=== PATIENT | female | born 1980 | race Caucasian/White ===

== ENCOUNTER 2018-01-11 01:56 | Emergency (ER) | payer OTHER ==
[~2018-01-11] VITALS: Ht 162.6 cm; Wt 61.2 kg
[2018-01-11 02:14] LABS: URINE BILIRUBIN NEGATIVE (Negative); URINE BLOOD NEGATIVE (Negative); URINE CLARITY SL CLOUDY; URINE COLOR YELLOW; URINE GLUCOSE-RANDOM* NEGATIVE (Negative); URINE KETONES TRACE (Negative); URINE LEUKOCYTES-REFLEX NEGATIVE (Negative); URINE NITRITE-REFLEX POSITIVE (Negative); URINE PROTEIN (DIPSTICK) NEGATIVE (Negative); URINE UROBILINOGEN 0.2 E.U./dl (0.2-1.0)
[2018-01-11] MEDS ORDERED: ALEVE220 MG (02:16)
[2018-01-11 02:18] LABS: ABSOLUTE NEUTROPHILS 3.2 thou/uL (1.4-8.2); BASOPHILS 1.1 % (0.0-2.0); EOSINOPHILS 4.9 % (0.0-3.0); HEMATOCRIT 40.2 % (37.0-47.0); HEMOGLOBIN 13.7 gm/dL (12.0-15.0); LYMPHOCYTES 42.7 % (24.0-44.0); MCH 33.1 pg (26.0-34.0); MCHC 34.2 g/dL (28.0-37.0); MCV 96.9 fL (80.0-100.0); PLATELET COUNT 245 thou/uL (150-400); POLYS 39.3 % (36.0-66.0); RBC 4.15 mil/uL (4.20-5.00); RDW 13.2 % (10.5-14.5); WBC 8.3 thou/uL (4.0-11.0)
[2018-01-11 02:26] LABS: CALCIUM 8.3 mg/dL (8.5-10.1); CREATININE 0.9 mg/dL (0.6-1.0)
[2018-01-11 02:30] LABS: BACTERIA-REFLEX >30 Many /HPF (None Seen); SQUAMOUS >10 Many /LPF (0-3)
[2018-01-11 02:31] LABS: CASTS None Seen /LPF (None Seen); CRYSTALS None Seen /LPF (None Seen); URINE RBC 0-2 Rare /HPF (0-2); URINE WBC-REFLEX 0-5 Rare /HPF (0-5)
[2018-01-11 02:32] LABS: ALBUMIN 3.3 g/dL (3.4-5.0); TOTAL BILIRUBIN 0.1 mg/dL (<0.1-1.0)
[2018-01-11] MEDS ORDERED: ACETAMINOPHEN-1 EAC1 PO (03:59)
[2018-01-11] MEDS ORDERED: NAPROSYN500 MG PO (03:59)
[2018-01-11 04:18] VITALS: BP 108/62
[2018-08-13] MEDS ORDERED: CIPROFLOXACIN500 M1 PO (04:41)
[2018-08-13] MEDS ORDERED: MORPHINE SULFAT15 M3 PO (04:41)
[2018-08-13] MEDS ORDERED: FLAGYL500 MG PO (04:41)
[2018-08-13] MEDS ORDERED: UNICOMPLEX M TA1 TA1 PO (06:04)
[2018-08-16] MEDS ORDERED: PEPCID20 MG PO (14:09)
[2018-08-16] MEDS ORDERED: ESTRADIOL1 EACH TRANSDERM (14:09)
[2018-08-16] MEDS ORDERED: ACETAMINOPHEN325 M1 PO (14:09)
[2018-08-16] MEDS ORDERED: MEDROXYPROGEST2.5 MG PO (14:09)
== END 2018-01-11 04:20 | disposition home or self-care (01) ==
LOC: ER 01:56
PROVIDERS: Emergency Medicine
DX: N83.291 Other ovarian cyst, right side (principal); D25.9 Leiomyoma of uterus, unspecified; F17.210 Nicotine dependence, cigarettes, uncomplicated

== ENCOUNTER 2020-07-25 14:42 | Emergency (ER) | payer OTHER ==
[~2020-07-25] VITALS: Ht 152.4 cm; Wt 65.8 kg
[~2020-07-25 14:42] MED LIST: ACETAMINOPHEN-1 EAC1 PO; ACETAMINOPHEN325 M1 PO; ALEVE220 MG; CIPROFLOXACIN500 M1 PO; ESTRADIOL1 EACH TRANSDERM; FLAGYL500 MG PO; MEDROXYPROGEST2.5 MG PO; MORPHINE SULFAT15 M3 PO; NAPROSYN500 MG PO; PEPCID20 MG PO; UNICOMPLEX M TA1 TA1 PO
[2020-07-25 15:14] LABS: URINE BILIRUBIN NEGATIVE (Negative); URINE BLOOD TRACE (Negative); URINE CLARITY SL CLOUDY; URINE COLOR YELLOW; URINE GLUCOSE-RANDOM* TRACE (Negative); URINE KETONES NEGATIVE (Negative); URINE PROTEIN (DIPSTICK) TRACE (Negative)
[2020-07-25 15:15] LABS: URINE LEUKOCYTES-REFLEX 2+ (Negative); URINE NITRITE-REFLEX POSITIVE (Negative)
[2020-07-25 15:27] LABS: CASTS None Seen /LPF (None Seen); SQUAMOUS 4-10 Moderate /LPF (0-3); URINE WBC-REFLEX 6-15 Few /HPF (0-5)
[2020-07-25 15:28] LABS: CRYSTALS None Seen /LPF (None Seen); URINE RBC 0-2 Rare /HPF (0-2)
[2020-07-25 15:38] LABS: ABSOLUTE NEUTROPHILS 5.6 thou/uL (1.4-8.2); BASOPHILS 0.5 % (0.0-2.0); EOSINOPHILS 1.5 % (0.0-3.0); HEMATOCRIT 40.5 % (37.0-47.0); LYMPHOCYTES 14.1 % (24.0-44.0); MCH 33.8 pg (26.0-34.0); MCHC 34.6 g/dL (28.0-37.0); MCV 97.5 fL (80.0-100.0); PLATELET COUNT 196 thou/uL (150-400); POLYS 75.9 % (36.0-66.0); RBC 4.16 mil/uL (4.20-5.00); RDW 12.6 % (10.5-14.5); WBC 7.4 thou/uL (4.0-11.0)
[2020-07-25 15:47] LABS: CREATININE 0.7 mg/dL (0.6-1.0); POTASSIUM 3.6 mmol/L (3.5-5.1)
[2020-07-25 15:52] LABS: ALBUMIN 3.4 g/dL (3.4-5.0); TOTAL BILIRUBIN 0.2 mg/dL (0.2-1.0); TOTAL PROTEIN 7.4 g/dL (6.4-8.2)
[2020-07-25] MEDS ORDERED: KEFLEX500 M1 PO (17:00)
[2020-07-25] MEDS ORDERED: ONDANSETRON HCL4 M2 PO (17:00)
[2020-07-25 17:37] VITALS: BP 116/76
== END 2020-07-25 17:28 | disposition home or self-care (01) ==
LOC: ER 14:42
PROVIDERS: Physician Assistant
DX: N39.0 Urinary tract infection, site not specified (principal); R11.2 Nausea with vomiting, unspecified; F17.210 Nicotine dependence, cigarettes, uncomplicated; Z20.828 Contact with and (suspected) exposure to other viral communicable diseases; Z90.710 Acquired absence of both cervix and uterus